=== PATIENT | female | born 2000 | race Caucasian/White ===

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

== ENCOUNTER 2020-10-29 09:50 | Inpatient (IN) ==
[2020-10-29] MEDS ORDERED: cefTRIAXone SODIUM 2,000 MG/70 ML BAG IV STA (11:25)
[2020-10-29 12:03] LABS: Basophils # (auto) 0.02 K/uL (0-0.2); Basophils % (auto) 0.1 %; Eosinophils # (auto) 0.04 K/uL (0-0.5); Eosinophils % (auto) 0.3 %; Hematocrit (blood only) 41.1 % (37-47); Hemoglobin 14.3 g/dL (12.0-16.0); Immature Granulocytes # (auto) 0.03 K/uL (0.00-0.02); Immature Granulocytes % (auto) 0.2 %; Lymphocytes # (auto) 1.91 K/uL (1.2-3.4); Mean Corpuscular Hgb Conc 34.8 g/dL (32-36); Mean Corpuscular Volume 86.3 fL (80-100); Mean Platelet Volume 10.3 fL (7.4-10.4); Monocytes # (auto) 0.97 K/uL (0.11-0.59); Monocytes % (auto) 7.1 %; Neutrophils # (auto) 10.69 K/uL (1.4-6.5); Neutrophils % (auto) 78.3 %; Platelet Count 192 K/uL (130-400); RDW Coefficient of Variation 13.2 % (11.5-14.5); RDW Standard Deviation 42.2 fL (36.4-46.3); Red Blood Count 4.76 M/uL (4.2-5.4); White Blood Count 13.66 K/uL (4.8-10.8)
[2020-10-29 12:19] LABS: Albumin Level 3.9 gm/dl (3.4-5.0); BUN Creatinine Ratio 9.7 (10-20); Calcium 8.9 mg/dl (8.5-10.1); Creatinine Clr Calc Pharmacy 102.8 ml/min; Est GFR (African American) 120.3; Est GFR (Non-African American) 103.8; Potassium 3.6 mmol/L (3.5-5.1)
[2020-10-29 12:21] LABS: Bilirubin,Total 0.7 mg/dl (0.2-1); C Reactive Protein 5.06 mg/dl (0-0.29); Globulin 4.1 gm/dl (2.5-4.0)
[2020-10-29] MEDS ORDERED: OPTIRAY 320 100ml IV ONE (12:51)
--- NOTE | 2020-10-29 13:09 | CT Scan Report ---
CT tib/fib LT w con HISTORY: L leg wound TECHNIQUE: Multiaxial CT images of the left lower leg were performed following the intravenous admini stration of 90 cc of Optiray 320. COMPARISON STUDY: None. FINDINGS: No fracture or dislocation within the left tibia or fibula. No areas of bony destruction to suggest osteomyelitis. No radiopaque foreign bodies. There is skin thickening and subcutaneous edema predominantly along the lateral aspect of the left lower leg. No loculated fluid collections to sugg est an abscess. There is also subcutaneous fat stranding with mild enhancement within the mid to dist al left lower leg most pronounced laterally. Small linear area of hypodensity within the mid aspect o f the left peroneus longus muscle which could represent a mild myositis. This is best seen on image 2 14. Remaining deep fascial compartments of the left lower leg are intact. IMPRESSION: 1. Extensive subcutaneous edema, fat stranding, and skin thickening predominantly along the lateral a spect of the left lower leg. This likely represents a cellulitis. 2. No loculated fluid collections to suggest an abscess. 3. Small linear area of hypodensity within the mid aspect of the left peroneus longus muscle. This ma y represent mild myositis. Remaining deep fascial compartments of the left lower leg are intact. 4. No underlying bony abnormality to suggest an osteomyelitis. ACT 112: Negative or not required by law. Electronically signed by: Julian Clifford M.D. 10/29/2020 1:08 PM
[2020-10-29 13:37] LABS: Influenza A virus by PCR Negative (Neg); Influenza B virus by PCR Negative (Neg); RSV by PCR Negative (Neg); SARS CoV2 RNA(COVID-19) InHosp NEGATIVE (Negative)
--- NOTE | 2020-10-29 13:44 | History & Physical Report ---
Date of Service October 29, 2020 History of Present Illness Primary Care Provider: Chanelle Boles MD Allergies Allergy/AdvReac Type Severity Reaction Status Date / Time No Known Allergies Allergy Verified 10/29/20 10:23 Home Medications Medication Instructions Recorded Confirmed Type etonogestrel 68 mg subdermal 68 mg SUBD CONT ea 05/20/19 10/29/20 History implant cephalexin 500 mg PO Q6H 10 Days #40 cap 10/28/20 10/29/20 Rx sulfamethoxazole-trimethoprim 1 tab PO Q12H 10 Days #20 tab 10/28/20 10/29/20 Rx [Bactrim DS] lactobacillus combination no.4 3,000 mmu cells PO ONCE 10/29/20 10/29/20 History [Probiotic] Past Med/Surg History Medical History (Updated 10/28/20 @ 12:39 by ISADORA Osorio) Anxiety no meds--smokes marijuana daily for this Blood in stool reason for colonoscopy Depression no meds Surgical History No history of previous surgery Family History Grandfather (Maternal) Family history of diabetes mellitus Family hx of colon cancer Other No family history of adverse response to anesthesia Social History Smoking Status: Current every day smoker Tobacco Type: E-cigarettes / Vaping Cigarettes Per Day: vaps every day (equivalant of 1 pack a day); Second Hand Exposure: No; Hx Alcohol Use: Yes Alcohol type: hard liquor Hx Substance Use: Yes (smokes marijuana daily) Last Used Substance: Days (ago) Last Used Substance Other:: smoke yesterday 05/24/2019 Preferred Language: [place]rugu[place] Communication Ability: Effective Public Transit Specialist Required: No Beliefs That Will Affect Care: None Current Living Situation: Significant Other Feels Safe at Home: Yes Assistive Devices: Contacts and Glasses Results & Data Results & Data ([facility]) Vital Signs (Past 12 Hours) Vital Signs Temp Pulse Pulse Resp BP BP Pulse Ox 10/29/20 12:43 74 18 114/85 98 10/29/20 10:01 36.3 C L 76 18 121/81 98 PG Care Time/CCT Total # of Minutes Spent Total Time Spent with Patient: Total time spent is greater than 50% in coordination of care (as documented) at patient's floor/unit and/or counseling patient: Coding
[2020-10-29] MEDS ORDERED: VANCOMYCIN CONSULT ACTIVE PRN (13:45)
[2020-10-29] MEDS: NICOTINE 21 MG/24 HR TDSY TD SCH (14:33)
[2020-10-29] MEDS ORDERED: VANCOMYCIN HCL 1,500 MG in SODIUM CHLORIDE 0.9% 500 ML IV ONE (15:00)
--- NOTE | 2020-10-29 15:03 | History & Physical Report ---
Date of Service October 29, 2020 Assessment & Plan (1) Cellulitis and abscess of left lower extremity: No loculated fluid collections to suggest an abscess - Check CK for myositis read on CT scan - Vancomycin IV- increase coverage if clinically not responding or worsening - qSOFA- 0 SIRS- 1 for WBC - no symptoms of systemic infection - will obtain blood cultures, however low yield - Trend ESR, CRP, - Borders marked with skin marker (2) Functional dyspepsia: No acute needs (3) Smoker: pack a day - nicotine patch- no acute needs History of Present Illness Chief Complaint: skin infection Primary Care Provider: Chanelle Boles MD 20 YOF with past medical history of lyme disease, erythematous rash, blood in stool with negative colonoscopy, Nexplanon implant. Patient comes into the emergency room for re-evaluation of left lower leg cellulitis, that has worsened over the past 24 hours. Patient came to the emergency room yesterday for painful, red, tender area which she originally noticed around Sat when was outside in her garden. As she presented in the EMD yesterday a bedside I&D was performed with drainage of small amount of purulence fluid and a wound culture was obtained. She was discharged on Bactrim and Keflex. Today she came back in the ER as the area she was more erythemic, more painful, and red line tracking up her leg. She denies any fevers or chills, tender or swollen lymphnodes. The dressing from this morning had "yellow but not purulence drainage" She is not on any other medications other than Nexplanon, current smoker and marijuana user, and NOT immunocompromised. Patient will be observed for response to IV antibiotics. Wound Culture from 10/28/20 is staphylococcus species- await for sensitivities- placed on IV vancomycin Allergies Allergy/AdvReac Type Severity Reaction Status Date / Time No Known Allergies Allergy Verified 10/29/20 10:23 Home Medications Medication Instructions Recorded Confirmed Type etonogestrel 68 mg subdermal 68 mg SUBD CONT ea 05/20/19 10/29/20 History implant cephalexin 500 mg PO Q6H 10 Days #40 cap 10/28/20 10/29/20 Rx sulfamethoxazole-trimethoprim 1 tab PO Q12H 10 Days #20 tab 10/28/20 10/29/20 Rx [Bactrim DS] lactobacillus combination no.4 3,000 mmu cells PO ONCE 10/29/20 10/29/20 History [Probiotic] Past Med/Surg History Medical History (Updated 10/30/20 @ 14:59 by Laurie Muñoz MD) Anxiety no meds--smokes marijuana daily for this Blood in stool reason for colonoscopy Depression no meds Surgical History No history of previous surgery Family History Grandfather (Maternal) Family history of diabetes mellitus Family hx of colon cancer Other No family history of adverse response to anesthesia Social History (Updated 10/31/20 @ 00:48 by Da Renteria) Smoking Status: Current every day smoker Tobacco Type: E-cigarettes / Vaping Cigarettes Per Day: vapes every day (equivalant of 1 pack a day); Second Hand Exposure: No; Do You Dip or Chew Tobacco: No; Tobacco Cessation Education Requested by Patient: Yes Hx Alcohol Use: Yes Alcohol type: beer, wine and hard liquor Hx Substance Use: Yes Last Used Substance: Days (ago) Last Used Substance Other:: Days ago Preferred Language: Zambian Communication Ability: Effective Physician General Internal Medicine Required: No Beliefs That Will Affect Care: None Current Living Situation: Significant Other Other Information That Helps Us Care for You: No Feels Safe at Home: Yes Safety Concerns: Feels Safe At This Time Assistive Devices: None Review of Systems Review of Systems: REVIEW OF SYSTEMS: Constitutional: No fever, sweats or chills Eyes: No diplopia, no worsening or blurred vision ENT: normal hearing, no trouble swallowing Respiratory: No cough, sputum, dyspnea at rest or on exertion Cardiovascular: No chest pain, tightness or palpitations Abdomen: No pain, nausea, vomiting, diarrhea or constipation Musculoskeletal: (+) redness and pain to left lower leg No joint pain, Neurologic: No weakness, numbness/tingling, or balance problems Psychiatric: (+)anxiety or (-) depression Skin: (+) as per HPI Physical Exam Physical Exam: PHYSICAL EXAM: General: awake, alert, no apparent distress Head: Normocephalic, atraumatic ENT: PERRL, EOMI, no pharyngeal exudate, mucous membranes moist Neuro: AAO x 3, speech clear and appropriate, strength intact bilaterally 5/5, sensation intact and equal all extremities and dermatomes, no pronator drift Chest: equal rise and fall of the chest, no accessory muscle use, no heaves or thrills, Clear to auscultation, on room air, Cardiac: Regular rate and rhythm, telemetry reviewed, skin warm dry, cap refill <3 seconds, peripheral pulses +2 no JVD, no murmur, no peripheral cardiogenic related edema GI: NABS x 4 quadrants, soft, nontender to palpation, no rebound, guarding or tenderness : Spontaneously voiding, no pain, no CVA tenderness, Extremities: Normal inspection, no peripheral edema or erythema, calfs nontender to palpation Psych: Normal mood and affect Skin: left lower extremity is erythematous and increase in lateral and medial surrounding swelling, hot and tender. The area is tender from 3 inches above ankle to ~3 inches from knee. The surrounding skin is shiny in appearance, and erysipelar rash. The borders are sharp and demarcated. There is a red line that tracks caudally along the lymphatic system and ends just below her groin. The inguinal lympnode on that side is mildly enlarged and not tender to palpation. Right leg is unaffected and there are no other lesions noted. Results & Data Results & Data ([facility]) Vital Signs (Past 12 Hours) Vital Signs Temp Pulse Pulse Resp BP BP Pulse Ox 10/29/20 12:43 74 18 114/85 98 10/29/20 10:01 36.3 C L 76 18 121/81 98 Laboratory Results Abnormal lab results 10/29/20 10/29/20 Range/Units 11:40 11:40 WBC 13.66 H (4.8-10.8) K/uL Neut # (Auto) 10.69 H (1.4-6.5) K/uL Woodson # (Auto) 0.97 H (0.11-0.59) K/uL Immature Gran # (Auto) 0.03 H (0.00-0.02) K/uL Chloride 108 H (98-107) mmol/L BUN/Creatinine Ratio 9.7 L (10-20) Glucose 108 H (70-99) mg/dl AST 13 L (15-37) U/L C-Reactive Protein 5.06 H (0-0.29) mg/dl Globulin 4.1 H (2.5-4.0) gm/dl Diagnostic Findings CT tib/fib LT w con HISTORY: L leg wound TECHNIQUE: Multiaxial CT images of the left lower leg were performed following the intravenous administration of 90 cc of Optiray 320. COMPARISON STUDY: None. FINDINGS: No fracture or dislocation within the left tibia or fibula. No areas of bony destruction to suggest osteomyelitis. No radiopaque foreign bodies. There is skin thickening and subcutaneous edema predominantly along the lateral aspect of the left lower leg. No loculated fluid collections to suggest an abscess. There is also subcutaneous fat stranding with mild enhancement within the mid to distal left lower leg most pronounced laterally. Small linear area of hypodensity within the mid aspect of the left peroneus longus muscle which could represent a mild myositis. This is best seen on image 214. Remaining deep fascial compartments of the left lower leg are intact. IMPRESSION: 1. Extensive subcutaneous edema, fat stranding, and skin thickening predominantly along the lateral aspect of the left lower leg. This likely represents a cellulitis. 2. No loculated fluid collections to suggest an abscess. 3. Small linear area of hypodensity within the mid aspect of the left peroneus longus muscle. This may represent mild myositis. Remaining deep fascial compartments of the left lower leg are intact. 4. No underlying bony abnormality to suggest an osteomyelitis. Medications Administered Home Medications etonogestrel 68 mg subdermal implant 68 mg SUBD CONT ea 05/20/19 [History Confirmed 10/29/20] cephalexin 500 mg PO Q6H 10 Days #40 cap 10/28/20 [Rx Confirmed 10/29/20] sulfamethoxazole-trimethoprim [Bactrim DS] 1 tab PO Q12H 10 Days #20 tab 10/28/20 [Rx Confirmed 10/29/20] lactobacillus combination no.4 [Probiotic] 3,000 mmu cells PO ONCE 10/29/20 [History Confirmed 10/29/20] Active Medications Vancomycin HCl 1,500 mg/ (Sodium Chloride) 530 mls @ 200 mls/hr IV NOW ONE Stop: 10/29/20 17:38 Miscellaneous (Remove Nicoderm Patch) 1 ea N/A DAILY@[id number] PRUDENCE Stop: 11/29/20 08:58 Miscellaneous Information (Vancomycin Consult Active) 1 ea N/A UD PRN PRN Reason: Consult Stop: 11/28/20 13:44 Nicotine (Nicotine 21 Mg/24 Hr Tdsy) 21 mg TD QAM PRUDENCE Stop: 11/28/20 13:29 Last Admin: 10/29/20 14:33 Dose: 21 mg Documented by: ECG Additional Comments: Not performed Code Status & VTE Plan Code Status CODE: FULL VTE: SCD's ambulation VTE Prophylaxis Plan VTE Prophylaxis will be ordered: Yes Supervising Physician Co-Signing Physician Notes Attending Attestation: Pt seen and examined, chart reviewed, care plan d/w ISADORA Mohr. I agree w/ the millan components of his documentation. 20yo female presents for the 2nd time in 2 days for LLE Cellulitis. Had I/D of small pustule on anterior left tolliver yesterday; culture growing staph species. Demarkation lines drawn around area of cellulitis yesterday in ER, and d/c home on oral abx. Despite such the erythema quickly spread beyond the lines, and she actually developed lymphangitic spread up the left anterior thigh towards the left groin. PMH/PSH/allergies/meds/sochx/famhx - reviewed vitals - afebrile, VSS gen - NAD heart - RRR, s1 s2 lungs - CTA b/l abd - soft NT ext - mild gross swelling of most of left tolliver extending from 2-3 inches below the left knee down to the tib-fib region proximal to ankle; worst cellulitic area is about 2/[address] down the tolliver; there is a previous I/D douglas; no drainage; area warm to touch and erythematous; there are demarkation lines around this area of cellulitis; erythema extends superiorly, inferiorly, and laterally from the demarkation lines; there is vertical lymphangitic spread of erythema from t he knee region up the ant thigh towards the thigh musculo - no pain over left knee; full ROM present of L knee A/P: LLE cellulitis 2nd to staph - continue IV vancomycin, then narrow further once species is identified and sensitivities are back. Elevate LLE. Agree with CPK. No clinical evidence on exam of infectious myositis however. Pain meds prn. Da Renteria MD PG Care Time/CCT Total # of Minutes Spent Total Time Spent with Patient: Total time spent is greater than 50% in coordination of care (as documented) at patient's floor/unit and/or counseling patient: Coding Level of Care Code 35383 Initial Inpt Care Lvl 2 Diagnoses Cellulitis and abscess of left lower extremity L03.116; L02.416 Functional dyspepsia K30 Smoker F17.200
--- NOTE | 2020-10-29 15:57 | Pharmacy Report ---
Pharmacy Abx Initial Consult - Date of Service October 29, 2020 - Pharmacy Dosing Scope Date of Consult: 10/29/20 Consultation requested by: Dr. Renteria Pharmacy is consulted to initiate VANCOMYCIN IV dosing therapy, order appropriate labs and adjust drug dose/frequency. - Subjective The patient is a 20 year old F admitted on . - Objective Height: 5 ft 6 in Weight: 64.5 kg Vital Signs (Past 12hrs): Vital Signs Temp Pulse Pulse Resp BP BP Pulse Ox 10/29/20 15:29 83 18 121/73 97 10/29/20 12:43 74 18 114/85 98 10/29/20 10:01 36.3 C L 76 18 121/81 98 Lab Results (24hrs): Laboratory Tests (24 Hours) 10/29/20 10/29/20 10/29/20 11:40 11:40 11:40 WBC 13.66 H Neut # (Auto) 10.69 H ESR 20 Creatinine 0.81 Est Cr Clr Drug Dosing 102.8 C-Reactive Protein 5.06 H Micro Results: 10/29/20 15:00 Aerobic Blood Culture - Pending Blood Anaerobic Blood Culture - Pending 10/29/20 15:05 Aerobic Blood Culture - Pending Blood Anaerobic Blood Culture - Pending - Assessment & Plan Assessment 20 year old F admitted for LLE staph cellulitis, worsening despite Keflex + Bactrim as an outpatient. Plan VANCOMYCIN for treatment of LLE staph cellulitis. Vancomycin IV * Loading dose: 1500mg (~23 mg/kg) * Patient meets criteria for vancomycin AUC dosing nomogram AUC/THIERRY is the preferred PK/PD target for vancomycin Target AUC/THIERRY = 400-600 AUC guided dosing is effective and associated with decreased risk of nephrotoxicity Pharmacy will continue to follow and will adjust dose/frequency as necessary. Thank you.
--- NOTE | 2020-10-29 16:25 | Emergency Department Note ---
History of Present Illness General Chief complaint: Infection Stated complaint: BITE Time Seen by Provider: 10/29/20 08:07 History of Present Illness Maximum Pain Intensity: 10 20-year-old female who presents to the emergency department with a male friend for evaluation of a worsening infection to the left leg. I did speak with this patient earlier in a telehealth visit, with recommendations to return to the emergency department. The patient reports that her infection started earlier in the week. She was working in her garden, and suspects that she was bitten by some type of insect. She was seen in our emergency department yesterday with a pustule and notable erythema on the leg. Attempted I&D procedure was performed without any significant purulent drainage. The patient was provided a prescription for Keflex and Bactrim DS antibiotics. The patient reports that she woke up several times last night in a sweat. She also reports progressively worsening swelling, redness and pain of the leg. She noticed a red streak going up her leg into the left groin this morning as well, and elected to utilize telehealth consultation initially, which was provided by me. The male friend reports that her temperatures have been in the high 90s, but has not gone above 100 F. The patient denies any prior history of skin infections or known antibiotic resistant infections. The patient reports that she does feel chilled and rundown. Home Medications Medication Instructions Recorded Confirmed Type etonogestrel 68 mg subdermal 68 mg SUBD CONT ea 05/20/19 10/29/20 History implant cephalexin 500 mg PO Q6H 10 Days #40 cap 10/28/20 10/29/20 Rx sulfamethoxazole-trimethoprim 1 tab PO Q12H 10 Days #20 tab 10/28/20 10/29/20 Rx [Bactrim DS] lactobacillus combination no.4 3,000 mmu cells PO ONCE 10/29/20 10/29/20 History [Probiotic] Allergies Allergy/AdvReac Type Severity Reaction Status Date / Time No Known Allergies Allergy Verified 10/29/20 10:23 Past Med/Surg History Medical History (Updated 10/29/20 @ 16:25 by Kody Mccartney) Anxiety no meds--smokes marijuana daily for this Blood in stool reason for colonoscopy Depression no meds Surgical History No history of previous surgery Family History Grandfather (Maternal) Family history of diabetes mellitus Family hx of colon cancer Other No family history of adverse response to anesthesia Social History Smoking Status: Current every day smoker Tobacco Type: E-cigarettes / Vaping Cigarettes Per Day: vaps every day (equivalant of 1 pack a day); Second Hand Exposure: No; Hx Alcohol Use: Yes Alcohol type: hard liquor Hx Substance Use: Yes (smokes marijuana daily) Last Used Substance: Days (ago) Last Used Substance Other:: smoke yesterday 05/24/2019 Preferred Language: Khmer Communication Ability: Effective 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 Beliefs That Will Affect Care: None Current Living Situation: Significant Other Feels Safe at Home: Yes Assistive Devices: Contacts and Glasses Review of Systems 10 system review was performed and was negative except for pertinent positives and negatives as indicated in history of present illness Physical Exam Vital Signs Vital Signs - 24 hr 10/29/20 10:01 10/29/20 12:43 10/29/20 15:29 Temperature 36.3 C L Temperature Source Skin Pulse Rate 76 Pulse Rate [Right Finger] 74 83 Pulse Rhythm [Right Finger] Regular Regular Pulse Strength [Right Finger] Normal Normal Respiratory Rate 18 18 18 Respiratory Effort / Characteristics Non-Labored Spontaneous Non-Labored Spontaneous Non-Labored Spontaneous Respiratory Depth Normal Normal Normal Respiratory Pattern Regular Regular Blood Pressure 121/81 Blood Pressure [Left Arm] 114/85 121/73 Blood Pressure Mean 94 Blood Pressure Mean [Left Arm] 94 89 Blood Pressure Position Lying Blood Pressure Position [Left Arm] Sitting Sitting Pulse Oximetry 98 98 97 Oxygen Delivery Method Room Air Room Air Room Air Sepsis Recent Fever Within 48 Hours No Sepsis New/Unexplained Change in Mental Status N/A Sepsis Action Taken by Nursing No Action Required CONSTITUTIONAL: Healthy and well nourished. Patient does not appear in any acute distress. HEENT: Normocephalic, atraumatic. No scleral icterus or conjunctival injection. NECK: Full active range of motion without discomfort. LYMPHATICS: No cervical chain adenopathy. RESPIRATORY: Clear to auscultation bilaterally with no wheezing, crackles, rhonchi or stridor. CARDIOVASCULAR: Regular rate and rhythm with no murmurs, rubs or gallops. MUSCULOSKELETAL: Examination of the left leg shows an open wound on the left anterior leg, likely from the previous I&D procedure. No purulent drainage is noted. The patient has notable induration of the entire anterior leg region. Also has a lymphangitic streak running from the center of the wound, along the anterior medial knee and anterior medial thigh region to the groin. The area of infection is exquisitely tender to palpation. She has no tenderness to palpation through the calf, ankle or foot region. Pedal pulses are intact. No subcutaneous crepitance is noted about the wound opening. INTEGUMENTARY: No rash or other significant dermatologic conditions noted. HEMATOLOGIC: No ecchymosis or petechiae. PSYCHIATRIC: Positive affect. NEUROLOGIC: Left lower extremity is sensory intact. Course Course Patient history and physical exam were performed. Nurses notes were reviewed. Vital signs were reviewed. The patient is currently afebrile and not hypoten sive or tachycardic. I also reviewed documentation from the patient's last visit, including the patient's I&D procedure. Wound cultures are preliminary positive for staph. Final cultures have yet to be completed. After physical exam was performed, I did discuss the case with Dr. Mike, ED attending physician, who also evaluated the patient. We did engage in conversation with our ED pharmacist regarding treatment options. Because the patient's condition has quickly and progressively worsen, she does not meet treatment criteria for dalbavancin IV antibiotics and outpatient management. I did recommend performing imaging and lab work in anticipation of admission, and the patient was in agreement. IV access was established, and labs were drawn. The patient refused any analgesics on initial exam. The patient was ordered Rocephin 2 g IV infusion. Review of labs does show a mild leukocytosis with left shift and bandemia. CMP is otherwise unremarkable. Rate is normal, however CRP is elevated. COVID-19 test was also performed in anticipation for admission, and was negative. CT with IV contrast of the leg shows evidence for cellulitis, and without subcutaneous air that would be consistent with necrotizing fasciitis. Findings were discussed with Dr. Mike, as well as with the patient, with the patient agreeing to admission. Patient did request a nicotine patch as she does vape the equivalent of 1 pack of cigarettes daily. The case was further discussed with Dr. Renteria, [facility], who agrees to evaluate the patient. Please see his dictation for further treatment and final disposition. Administered Medications Vancomycin HCl 1,500 mg/ (Sodium Chloride) 530 mls @ 200 mls/hr IV NOW ONE Stop: 10/29/20 17:38 Last Admin: 10/29/20 15:27 Dose: 200 mls/hr Documented by: [id number] Nicotine (Nicotine 21 Mg/24 Hr Tdsy) 21 mg TD QAM PRUDENCE Stop: 11/28/20 13:29 Last Admin: 10/29/20 14:33 Dose: 21 mg Documented by: [id number] Discontinued Medications Ceftriaxone Sodium (Rocephin) 2,000 mg in 70 mls @ 140 mls/hr IV NOW STA Stop: 10/29/20 11:54 Last Infusion: 10/29/20 12:11 Dose: 0 mls/hr Documented by: [id number] Admin: 10/29/20 11:41 Dose: 140 mls/hr Documented by: [id number] Ioversol (Ioversol 100ml) 90 ml IV ONCE ONE Stop: 10/29/20 12:52 Last Admin: 10/29/20 12:51 Dose: 90 ml Documented by: [id number] Medical Decision Making Medical Records Attestation: I reviewed the patient's medical records. Home Medications Current Medication List: was personally reviewed by me Laboratory Data Attestation: I reviewed the patient's lab results. Result diagrams: 10/29/20 11:40 10/29/20 11:40 Lab Results 10/29/20 10/29/20 10/29/20 Range/Units 11:40 11:40 11:40 WBC 13.66 H (4.8-10.8) K/uL RBC 4.76 (4.2-5.4) M/uL Hgb 14.3 (12.0-16.0) g/dL Hct 41.1 (37-47) % MCV 86.3 (80-100) fL MCH 30.0 (25-34) pg MCHC 34.8 (32-36) g/dL RDW Std Deviation 42.2 (36.4-46.3) fL RDW Coeff of Jordyn 13.2 (11.5-14.5) % Plt Count 192 (130-400) K/uL MPV 10.3 (7.4-10.4) fL Immature Gran % (Auto) 0.2 % Neut % (Auto) 78.3 % Lymph % (Auto) 14.0 % [place] % (Auto) 7.1 % Eos % (Auto) 0.3 % Baso % (Auto) 0.1 % Neut # (Auto) 10.69 H (1.4-6.5) K/uL Lymph # (Auto) 1.91 (1.2-3.4) K/uL [place] # (Auto) 0.97 H (0.11-0.59) K/uL Eos # (Auto) 0.04 (0-0.5) K/uL Baso # (Auto) 0.02 (0-0.2) K/uL Immature Gran # (Auto) 0.03 H (0.00-0.02) K/uL ESR 20 (0-21) mm/hr Sodium 138 (136-145) mmol/L Potassium 3.6 (3.5-5.1) mmol/L Chloride 108 H (98-107) mmol/L Carbon Dioxide 27 (21-32) mmol/L Anion Gap 3.0 (3-11) BUN 8 (7-18) mg/dl Creatinine 0.81 (0.6-1.2) mg/dl Est Cr Clr Drug Dosing 102.8 ml/min Est GFR ( Amer) 120.3 Est GFR (Non-Af Amer) 103.8 BUN/Creatinine Ratio 9.7 L (10-20) Glucose 108 H (70-99) mg/dl Calcium 8.9 (8.5-10.1) mg/dl Total Bilirubin 0.7 (0.2-1) mg/dl AST 13 L (15-37) U/L ALT 15 (12-78) U/L Alkaline Phosphatase 64 (45-117) U/L Total Creatine Kinase (26-192) U/L C-Reactive Protein 5.06 H (0-0.29) mg/dl Total Protein 8.0 (6.4-8.2) gm/dl Albumin 3.9 (3.4-5.0) gm/dl Globulin 4.1 H (2.5-4.0) gm/dl Albumin/Globulin Ratio 1.0 (0.9-2) COVID-19 Eval Order SARS-CoV-2 (PCR) (Negative) Influenza Type A (PCR) (Neg) Influenza Type B (PCR) (Neg) RSV (RT-PCR) (Neg) 10/29/20 10/29/20 10/29/20 Range/Units 11:40 12:45 12:45 WBC (4.8-10.8) K/uL RBC (4.2-5.4) M/uL Hgb (12.0-16.0) g/dL Hct (37-47) % MCV (80-100) fL MCH (25-34) pg MCHC (32-36) g/dL RDW Std Deviation (36.4-46.3) fL RDW Coeff of Jordyn (11.5-14.5) % Plt Count (130-400) K/uL MPV (7.4-10.4) fL Immature Gran % (Auto) % Neut % (Auto) % Lymph % (Auto) % [place] % (Auto) % Eos % (Auto) % Baso % (Auto) % Neut # (Auto) (1.4-6.5) K/uL Lymph # (Auto) (1.2-3.4) K/uL [place] # (Auto) (0.11-0.59) K/uL Eos # (Auto) (0-0.5) K/uL Baso # (Auto) (0-0.2) K/uL Immature Gran # (Auto) (0.00-0.02) K/uL ESR (0-21) mm/hr Sodium (136-145) mmol/L Potassium (3.5-5.1) mmol/L Chloride (98-107) mmol/L Carbon Dioxide (21-32) mmol/L Anion Gap (3-11) BUN (7-18) mg/dl Creatinine (0.6-1.2) mg/dl Est Cr Clr Drug Dosing ml/min Est GFR ( Amer) Est GFR (Non-Af Amer) BUN/Creatinine Ratio (10-20) Glucose (70-99) mg/dl Calcium (8.5-10.1) mg/dl Total Bilirubin (0.2-1) mg/dl AST (15-37) U/L ALT (12-78) U/L Alkaline Phosphatase (45-117) U/L Total Creatine Kinase 76 (26-192) U/L C-Reactive Protein (0-0.29) mg/dl Total Protein (6.4-8.2) gm/dl Albumin (3.4-5.0) gm/dl Globulin (2.5-4.0) gm/dl Albumin/Globulin Ratio (0.9-2) COVID-19 Eval Order CovFluRsv at [facility] SARS-CoV-2 (PCR) NEGATIVE (Negative) Influenza Type A (PCR) Negative (Neg) Influenza Type B (PCR) Negative (Neg) RSV (RT-PCR) Negative (Neg) Imaging Data Attestation: I personally reviewed and interpreted this imaging study as follows: My Impression: CT with IV contrast of the left leg shows evidence for cellulitis, and without underlying collection to suggest necrotizing fasciitis. Radiologist report was also reviewed. Radiologist's Impression: Lower Extremity CT 10/29/20 11:27 CT tib/fib LT w con HISTORY: L leg wound TECHNIQUE: Multiaxial CT images of the left lower leg were performed following the intravenous administration of 90 cc of Optiray 320. COMPARISON STUDY: None. FINDINGS: No fracture or dislocation within the left tibia or fibula. No areas of bony destruction to suggest osteomyelitis. No radiopaque foreign bodies. There is skin thickening and subcutaneous edema predominantly along the lateral aspect of the left lower leg. No loculated fluid collections to suggest an abscess. There is also subcutaneous fat stranding with mild enhancement within the mid to distal left lower leg most pronounced laterally. Small linear area of hypodensity within the mid aspect of the left peroneus longus muscle which could represent a mild myositis. This is best seen on image 214. Remaining deep fascial compartments of the left lower leg are intact. IMPRESSION: 1. Extensive subcutaneous edema, fat stranding, and skin thickening predominantly along the lateral aspect of the left lower leg. This likely represents a cellulitis. 2. No loculated fluid collections to suggest an abscess. 3. Small linear area of hypodensity within the mid aspect of the left peroneus longus muscle. This may represent mild myositis. Remaining deep fascial compartments of the left lower leg are intact. 4. No underlying bony abnormality to suggest an osteomyelitis. ACT 112: Negative or not required by law. Electronically signed by: Julian Clifford M.D. 10/29/2020 1:08 PM Blood Pressure Blood Pressure Findings: Normal blood pressure MDM Narrative Patient does not have a fever, significant white count or physical exam findings to suggest sepsis. Because of the rapidly advancing infection, I do feel that the patient warrants inpatient antibiotic management. I do not suspect other underlying etiologies such as DVT. Antibiotic resistant infection was also considered, but felt less likely. The patient has failed outpatient management with oral Keflex and Bactrim DS antibiotics, however she has been on the antibiotics for less than 24 hours of her last ED evaluation. Impression & Plan Cellulitis of left leg, Acute lymphangitis of left lower extremity Discharge Plan Visit Data Chief Complaint: Infection Stated Complaint: BITE ED Provider: Richardson Mike ED Midlevel Provider: Kody Mccartney Discharge Problem: Cellulitis of left leg, Acute lymphangitis of left lower extremity Forms Stand Alone Forms: My [facility] [employer] Prescriptions Prescriptions: No Action Nexplanon 68 mg implant 68 mg SUBD CONT RF: 0 sulfamethoxazole-trimethoprim [Bactrim DS] 800-160 mg tablet 1 tab PO Q12H 10 Days Qty: 20 RF: 0 cephalexin 500 mg capsule 500 mg PO Q6H 10 Days Qty: 40 RF: 0 Probiotic 3 billion cell Capsule 3,000 mmu cells PO ONCE RF: 0
--- NOTE | 2020-10-29 16:28 | ED Telehealth Note ---
Telehealth Telehealth Telehealth Options: 2-way audio and video For the duration of the visit, provider was performing the assessment from: The same facility as the patient After establishing a telemedicine visit, patient was: Patient was verified with two unique identifiers Total Time Spent (minutes): 6.5 Impression & Plan Cellulitis of left leg, Acute lymphangitis of left lower extremity Note/Exam/Outcome Date of Service October 29, 2020 20-year-old female who utilizes telehealth services today for further evaluation of a left leg infection. The patient reports that she was in the emergency department yesterday for the infection. She reports having an I&D procedure performed, and was started on both Keflex and Bactrim DS antibiotics. She reports that the infection has progressively worsened with swelling, pain and a red streak extending from the wound to her left groin. The patient reports that she also woke up several times last night in a sweat. She reports having a low- grade fever as well. Given the patient's worsening infection, I did recommend that she return to the emergency department for further reevaluation, possible IV antibiotics and consideration for admission as warranted. The patient was in agreement, and will return for further evaluation. It is noted in the following sections of laboratory and imaging studies that were completed at the time of ED presentation, and not through this telehealth visit. ED Telehealth Outcome Referred to ED for in person visit Past Med/Surg History Medical History (Updated 10/29/20 @ 16:25 by Kody Mccartney) Anxiety no meds--smokes marijuana daily for this Blood in stool reason for colonoscopy Depression no meds Surgical History No history of previous surgery Family History Grandfather (Maternal) Family history of diabetes mellitus Family hx of colon cancer Other No family history of adverse response to anesthesia Social History Smoking Status: Current every day smoker Tobacco Type: E-cigarettes / Vaping Cigarettes Per Day: vaps every day (equivalant of 1 pack a day); Second Hand Exposure: No; Hx Alcohol Use: Yes Alcohol type: hard liquor Hx Substance Use: Yes (smokes marijuana daily) Last Used Substance: Days (ago) Last Used Substance Other:: smoke yesterday 05/24/2019 Preferred Language: Azerbaijani Communication Ability: Effective 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 Beliefs That Will Affect Care: None Current Living Situation: Significant Other Feels Safe at Home: Yes Assistive Devices: Contacts and Glasses Allergies Allergies Allergy/AdvReac Type Severity Reaction Status Date / Time No Known Allergies Allergy Verified 10/29/20 10:23 Home Meds Home Medications Medication Instructions Recorded Confirmed etonogestrel 68 mg subdermal 68 mg SUBD CONT ea 05/20/19 10/29/20 implant lactobacillus combination no.4 3,000 mmu cells PO ONCE 10/29/20 10/29/20 [Probiotic] Previous Rx's Medication Instructions Recorded cephalexin 500 mg PO Q6H 10 Days #40 cap 10/28/20 sulfamethoxazole-trimethoprim 1 tab PO Q12H 10 Days #20 tab 10/28/20 [Bactrim DS] Results & Data (ED) Vital Signs Vital Signs - 24 hr 10/29/20 10:01 10/29/20 12:43 10/29/20 15:29 Temperature 36.3 C L Temperature Source Skin Pulse Rate 76 Pulse Rate [Right Finger] 74 83 Pulse Rhythm [Right Finger] Regular Regular Pulse Strength [Right Finger] Normal Normal Respiratory Rate 18 18 18 Respiratory Effort / Characteristics Non-Labored Spontaneous Non-Labored Spontaneous Non-Labored Spontaneous Respiratory Depth Normal Normal Normal Respiratory Pattern Regular Regular Blood Pressure 121/81 Blood Pressure [Left Arm] 114/85 121/73 Blood Pressure Mean 94 Blood Pressure Mean [Left Arm] 94 89 Blood Pressure Position Lying Blood Pressure Position [Left Arm] Sitting Sitting Pulse Oximetry 98 98 97 Oxygen Delivery Method Room Air Room Air Room Air Sepsis Recent Fever Within 48 Hours No Sepsis New/Unexplained Change in Mental Status N/A Sepsis Action Taken by Nursing No Action Required Laboratory Data Result diagrams: 10/29/20 11:40 10/29/20 11:40 Lab Results 10/29/20 10/29/20 10/29/20 Range/Units 11:40 11:40 11:40 WBC 13.66 H (4.8-10.8) K/uL RBC 4.76 (4.2-5.4) M/uL Hgb 14.3 (12.0-16.0) g/dL Hct 41.1 (37-47) % MCV 86.3 (80-100) fL MCH 30.0 (25-34) pg MCHC 34.8 (32-36) g/dL RDW Std Deviation 42.2 (36.4-46.3) fL RDW Coeff of Jordyn 13.2 (11.5-14.5) % Plt Count 192 (130-400) K/uL MPV 10.3 (7.4-10.4) fL Immature Gran % (Auto) 0.2 % Neut % (Auto) 78.3 % Lymph % (Auto) 14.0 % [place] % (Auto) 7.1 % Eos % (Auto) 0.3 % Baso % (Auto) 0.1 % Neut # (Auto) 10.69 H (1.4-6.5) K/uL Lymph # (Auto) 1.91 (1.2-3.4) K/uL Benson # (Auto) 0.97 H (0.11-0.59) K/uL Eos # (Auto) 0.04 (0-0.5) K/uL Baso # (Auto) 0.02 (0-0.2) K/uL Immature Gran # (Auto) 0.03 H (0.00-0.02) K/uL ESR 20 (0-21) mm/hr Sodium 138 (136-145) mmol/L Potassium 3.6 (3.5-5.1) mmol/L Chloride 108 H (98-107) mmol/L Carbon Dioxide 27 (21-32) mmol/L Anion Gap 3.0 (3-11) BUN 8 (7-18) mg/dl Creatinine 0.81 (0.6-1.2) mg/dl Est Cr Clr Drug Dosing 102.8 ml/min Est GFR ( Amer) 120.3 Est GFR (Non-Af Amer) 103.8 BUN/Creatinine Ratio 9.7 L (10-20) Glucose 108 H (70-99) mg/dl Calcium 8.9 (8.5-10.1) mg/dl Total Bilirubin 0.7 (0.2-1) mg/dl AST 13 L (15-37) U/L ALT 15 (12-78) U/L Alkaline Phosphatase 64 (45-117) U/L Total Creatine Kinase (26-192) U/L C-Reactive Protein 5.06 H (0-0.29) mg/dl Total Protein 8.0 (6.4-8.2) gm/dl Albumin 3.9 (3.4-5.0) gm/dl Globulin 4.1 H (2.5-4.0) gm/dl Albumin/Globulin Ratio 1.0 (0.9-2) COVID-19 Eval Order SARS-CoV-2 (PCR) (Negative) Influenza Type A (PCR) (Neg) Influenza Type B (PCR) (Neg) RSV (RT-PCR) (Neg) 10/29/20 10/29/20 10/29/20 Range/Units 11:40 12:45 12:45 WBC (4.8-10.8) K/uL RBC (4.2-5.4) M/uL Hgb (12.0-16.0) g/dL Hct (37-47) % MCV (80-100) fL MCH (25-34) pg MCHC (32-36) g/dL RDW Std Deviation (36.4-46.3) fL RDW Coeff of Jordyn (11.5-14.5) % Plt Count (130-400) K/uL MPV (7.4-10.4) fL Immature Gran % (Auto) % Neut % (Auto) % Lymph % (Auto) % [place] % (Auto) % Eos % (Auto) % Baso % (Auto) % Neut # (Auto) (1.4-6.5) K/uL Lymph # (Auto) (1.2-3.4) K/uL Benson # (Auto) (0.11-0.59) K/uL Eos # (Auto) (0-0.5) K/uL Baso # (Auto) (0-0.2) K/uL Immature Gran # (Auto) (0.00-0.02) K/uL ESR (0-21) mm/hr Sodium (136-145) mmol/L Potassium (3.5-5.1) mmol/L Chloride (98-107) mmol/L Carbon Dioxide (21-32) mmol/L Anion Gap (3-11) BUN (7-18) mg/dl Creatinine (0.6-1.2) mg/dl Est Cr Clr Drug Dosing ml/min Est GFR ( Amer) Est GFR (Non-Af Amer) BUN/Creatinine Ratio (10-20) Glucose (70-99) mg/dl Calcium (8.5-10.1) mg/dl Total Bilirubin (0.2-1) mg/dl AST (15-37) U/L ALT (12-78) U/L Alkaline Phosphatase (45-117) U/L Total Creatine Kinase 76 (26-192) U/L C-Reactive Protein (0-0.29) mg/dl Total Protein (6.4-8.2) gm/dl Albumin (3.4-5.0) gm/dl Globulin (2.5-4.0) gm/dl Albumin/Globulin Ratio (0.9-2) COVID-19 Eval Order CovFluRsv at [facility] SARS-CoV-2 (PCR) NEGATIVE (Negative) Influenza Type A (PCR) Negative (Neg) Influenza Type B (PCR) Negative (Neg) RSV (RT-PCR) Negative (Neg) Discharge Plan Visit Data Chief Complaint: Infection Stated Complaint: BITE ED Provider: Richardson Mike ED Midlevel Provider: Kody Mccartney Discharge Problem: Cellulitis of left leg, Acute lymphangitis of left lower extremity Forms Stand Alone Forms: My [facility] [employer] Prescriptions Prescriptions: No Action Nexplanon 68 mg implant 68 mg SUBD CONT RF: 0 sulfamethoxazole-trimethoprim [Bactrim DS] 800-160 mg tablet 1 tab PO Q12H 10 Days Qty: 20 RF: 0 cephalexin 500 mg capsule 500 mg PO Q6H 10 Days Qty: 40 RF: 0 Probiotic 3 billion cell Capsule 3,000 mmu cells PO ONCE RF: 0
[2020-10-29] MEDS: ACETAMINOPHEN 325 MG TAB PO PRN (19:41)
[2020-10-29] MEDS ORDERED: PNEUMOCOCCAL Polysaccharide Vaccine 25mcg/0.5mL vial/Syr IM ONE (21:30)
[2020-10-29 22:18] LABS: Pregnancy Test, Urine Negative (Negative)
[2020-10-29 22:24] LABS: Appearance Urine Clear (Clear); Bilirubin Urine Negative (Negative); Blood Urine Negative (Negative); Color Urine Yellow; Glucose Urine UA Negative (Negative); Ketones Urine Negative (Negative); Leukocyte Esterase Urine Negative (Negative); Nitrite Urine Negative (Negative); Protein Urine Negative (Negative); Specific Gravity Urine 1.009 (1.000-1.030); Urobilinogen Urine Negative (Negative)
[2020-10-30] MEDS ORDERED: VANCOMYCIN HCL 1,000 MG in SODIUM CHLORIDE 0.9% 250 ML IV SCH
[2020-10-30] MEDS ORDERED: VANCOMYCIN HCL 1,000 MG/270 ML BAG IV SCH
[2020-10-30] MEDS: VANCOMYCIN HCL 1,000 MG in SODIUM CHLORIDE 0.9% 250 ML IV SCH ×2 (00:19→08:02)
[2020-10-30] MEDS ORDERED: Nursing to Pharmacy Communication SCH (09:00)
[2020-10-30] MEDS: ACETAMINOPHEN 325 MG TAB PO PRN ×3 (09:06→22:03)
[2020-10-30] MEDS: [UNRECOGNIZED DRUG - OTHER] PO SCH (09:17)
[2020-10-30] MEDS: PROBIOTICS PO SCH (09:17)
[2020-10-30] MEDS: NICOTINE 21 MG/24 HR TDSY TD SCH (09:18)
[2020-10-30] MEDS ORDERED: cefTRIAXone SODIUM 1,000 MG in DEXTROSE 5% 50 ML IV SCH (11:00)
[2020-10-30 11:02] LABS: Basophils # (auto) 0.01 K/uL (0-0.2); Basophils % (auto) 0.1 %; Eosinophils # (auto) 0.06 K/uL (0-0.5); Eosinophils % (auto) 0.6 %; Hematocrit (blood only) 38.8 % (37-47); Hemoglobin 13.2 g/dL (12.0-16.0); Immature Granulocytes # (auto) 0.01 K/uL (0.00-0.02); Immature Granulocytes % (auto) 0.1 %; Lymphocytes # (auto) 1.79 K/uL (1.2-3.4); Lymphocytes % (auto) 18.9 %; Mean Corpuscular Volume 88.2 fL (80-100); Mean Platelet Volume 10.4 fL (7.4-10.4); Monocytes # (auto) 0.85 K/uL (0.11-0.59); Neutrophils # (auto) 6.75 K/uL (1.4-6.5); Neutrophils % (auto) 71.3 %; Platelet Count 181 K/uL (130-400); RDW Coefficient of Variation 13.2 % (11.5-14.5); White Blood Count 9.47 K/uL (4.8-10.8)
[2020-10-30 11:25] LABS: BUN Creatinine Ratio 5.4 (10-20); Calcium 8.3 mg/dl (8.5-10.1); Creatinine Clr Calc Pharmacy 117.3 ml/min; Est GFR (African American) 141.1; Est GFR (Non-African American) 121.8; Potassium 3.7 mmol/L (3.5-5.1)
[2020-10-30] MEDS: ceFAZolin 2000MG 2,000 MG/15 ML SYR IV SCH ×2 (12:36→20:02)
[2020-10-30] MEDS: ONDANSETRON INJ 2 MG/ML 2 ML VIAL IV PRN ×2 (12:40→20:10)
--- NOTE | 2020-10-30 15:03 | Hospitalist Progress Note ---
Date of Service October 30, 2020 Assessment & Plan (1) Cellulitis and abscess of left lower extremity: With left leg cellulitis and lymphangitis with small abscess now s/p I&D, failed outpt antibiotics Afebrile here, leukocytosis now improved, no sepsis CT leg no loculated fluid collections to suggest an abscess CK normal Wound cx with MSSA, BCXs NGTD Leg is improving but needs one more day of IV abx ESR 19, CRP 4.2 but improved from previous--> trend -elevated when in bed -dc Vanco and start IV ANcef 2000mg IV q8h while in hospital -can convert to po doxycycline x 7-10 day course as outpt after discharge tylenol prn pain (2) Functional dyspepsia: No acute needs Zofran as needed (3) Smoker: pack a day - nicotine patch needs smoking cessation counseling (4) DVT prophylaxis: add Lovenox continue SCD to RLE Dispo-continued stay, possible discharge tomorrow Admission and Anticipated Discharge Date Admission Date: October 29, 2020 Subjective Pt feeling better, is concerned that the redness is now down behind her calf instead of just on front of her leg. However, the red streak of the leg is now gone.She had a little nausea with the antibiotic injection that was relieved with Zofran. Her stools are a bit soft and she brought in probiotics from home to take. Denies CP or SOB. Afebrile. Review of Systems Review of Systems: All systems reviewed & are unremarkable except as noted in HPI & below Physical Exam Constitutional: WD/WN, vitals as above Eyes: + anicteric sclerae Neck: trachea midline, no thyromegaly Respiratory: normal respiratory effort, lungs clear to auscultation Cardiovascular: Rate/Rhythm: regular rate and regular rhythm Heart Sounds: no murmur Extremities: + edema (left distal leg and ankle with mild nonpitting edema) Chest (Breasts): Chest: normal inspection of chest Gastrointestinal (Abdomen): normal bowel sounds, soft, nontender, no hepatosplenomegaly Musculoskeletal: Extremities: no cyanosis and no clubbing Skin: erythema anterior left leg and has widened outside of marked line to lateral leg and medial leg but no streaking erythema up thigh and erythema has receded from proximal line drawn; small incisional scab in middle 2+ DP pulse on left Neurologic: moves all extremities and awake; no focal motor deficits Psychiatric: A+Ox3, euthymic affect Results & Data Results & Data ([facility]) Vital Signs (Past 12 Hours) Vital Signs Temp Pulse Resp BP Pulse Ox 10/30/20 08:00 37.0 C 79 16 107/65 97 Laboratory Results 10/30/20 10/30/20 10/30/20 Range/Units 06:29 06:29 06:29 WBC 9.47 (4.8-10.8) K/uL RBC 4.40 (4.2-5.4) M/uL Hgb 13.2 (12.0-16.0) g/dL Hct 38.8 (37-47) % MCV 88.2 (80-100) fL MCH 30.0 (25-34) pg MCHC 34.0 (32-36) g/dL RDW Std Deviation 43.0 (36.4-46.3) fL RDW Coeff of Jordyn 13.2 (11.5-14.5) % Plt Count 181 (130-400) K/uL MPV 10.4 (7.4-10.4) fL Immature Gran % (Auto) 0.1 % Neut % (Auto) 71.3 % Lymph % (Auto) 18.9 % [place] % (Auto) 9.0 % Eos % (Auto) 0.6 % Baso % (Auto) 0.1 % Neut # (Auto) 6.75 H (1.4-6.5) K/uL Lymph # (Auto) 1.79 (1.2-3.4) K/uL [place] # (Auto) 0.85 H (0.11-0.59) K/uL Eos # (Auto) 0.06 (0-0.5) K/uL Baso # (Auto) 0.01 (0-0.2) K/uL Immature Gran # (Auto) 0.01 (0.00-0.02) K/uL ESR (0-21) mm/hr Sodium 140 (136-145) mmol/L Potassium 3.7 (3.5-5.1) mmol/L Chloride 106 (98-107) mmol/L Carbon Dioxide 27 (21-32) mmol/L Anion Gap 7.0 (3-11) BUN 4 L (7-18) mg/dl Creatinine 0.71 (0.6-1.2) mg/dl Est Cr Clr Drug Dosing 117.3 ml/min Est GFR ( Amer) 141.1 Est GFR (Non-Af Amer) 121.8 BUN/Creatinine Ratio 5.4 L (10-20) Glucose 82 (70-99) mg/dl Calcium 8.3 L (8.5-10.1) mg/dl Total Creatine Kinase (26-192) U/L C-Reactive Protein 4.28 H (0-0.29) mg/dl Urine Color Urine Appearance (Clear) Urine pH (4.5-7.5) Ur Specific [place] (1.000-1.030) Urine Protein (Negative) Urine Glucose (UA) (Negative) Urine Ketones (Negative) Urine Blood (Negative) Urine Nitrite (Negative) Urine Bilirubin (Negative) Urine Urobilinogen (Negative) Ur Leukocyte Esterase (Negative) Urine Test (Negative) 10/30/20 10/29/20 10/29/20 Range/Units 06:29 21:59 21:59 WBC (4.8-10.8) K/uL RBC (4.2-5.4) M/uL Hgb (12.0-16.0) g/dL Hct (37-47) % MCV (80-100) fL MCH (25-34) pg MCHC (32-36) g/dL RDW Std Deviation (36.4-46.3) fL RDW Coeff of Jordyn (11.5-14.5) % Plt Count (130-400) K/uL MPV (7.4-10.4) fL Immature Gran % (Auto) % Neut % (Auto) % Lymph % (Auto) % [place] % (Auto) % Eos % (Auto) % Baso % (Auto) % Neut # (Auto) (1.4-6.5) K/uL Lymph # (Auto) (1.2-3.4) K/uL [place] # (Auto) (0.11-0.59) K/uL Eos # (Auto) (0-0.5) K/uL Baso # (Auto) (0-0.2) K/uL Immature Gran # (Auto) (0.00-0.02) K/uL ESR 19 (0-21) mm/hr Sodium (136-145) mmol/L Potassium (3.5-5.1) mmol/L Chloride (98-107) mmol/L Carbon Dioxide (21-32) mmol/L Anion Gap (3-11) BUN (7-18) mg/dl Creatinine (0.6-1.2) mg/dl Est Cr Clr Drug Dosing ml/min Est GFR ( Amer) Est GFR (Non-Af Amer) BUN/Creatinine Ratio (10-20) Glucose (70-99) mg/dl Calcium (8.5-10.1) mg/dl Total Creatine Kinase (26-192) U/L C-Reactive Protein (0-0.29) mg/dl Urine Color Yellow Urine Appearance Clear (Clear) Urine pH 8.0 H (4.5-7.5) Ur Specific [place] 1.009 (1.000-1.030) Urine Protein Negative (Negative) Urine Glucose (UA) Negative (Negative) Urine Ketones Negative (Negative) Urine Blood Negative (Negative) Urine Nitrite Negative (Negative) Urine Bilirubin Negative (Negative) Urine Urobilinogen Negative (Negative) Ur Leukocyte Esterase Negative (Negative) Urine Test Negative (Negative) 10/29/20 Range/Units 11:40 WBC (4.8-10.8) K/uL RBC (4.2-5.4) M/uL Hgb (12.0-16.0) g/dL Hct (37-47) % MCV (80-100) fL MCH (25-34) pg MCHC (32-36) g/dL RDW Std Deviation (36.4-46.3) fL RDW Coeff of Jordyn (11.5-14.5) % Plt Count (130-400) K/uL MPV (7.4-10.4) fL Immature Gran % (Auto) % Neut % (Auto) % Lymph % (Auto) % [place] % (Auto) % Eos % (Auto) % Baso % (Auto) % Neut # (Auto) (1.4-6.5) K/uL Lymph # (Auto) (1.2-3.4) K/uL [place] # (Auto) (0.11-0.59) K/uL Eos # (Auto) (0-0.5) K/uL Baso # (Auto) (0-0.2) K/uL Immature Gran # (Auto) (0.00-0.02) K/uL ESR (0-21) mm/hr Sodium (136-145) mmol/L Potassium (3.5-5.1) mmol/L Chloride (98-107) mmol/L Carbon Dioxide (21-32) mmol/L Anion Gap (3-11) BUN (7-18) mg/dl Creatinine (0.6-1.2) mg/dl Est Cr Clr Drug Dosing ml/min Est GFR ( Amer) Est GFR (Non-Af Amer) BUN/Creatinine Ratio (10-20) Glucose (70-99) mg/dl Calcium (8.5-10.1) mg/dl Total Creatine Kinase 76 (26-192) U/L C-Reactive Protein (0-0.29) mg/dl Urine Color Urine Appearance (Clear) Urine pH (4.5-7.5) Ur Specific [place] (1.000-1.030) Urine Protein (Negative) Urine Glucose (UA) (Negative) Urine Ketones (Negative) Urine Blood (Negative) Urine Nitrite (Negative) Urine Bilirubin (Negative) Urine Urobilinogen (Negative) Ur Leukocyte Esterase (Negative) Urine Test (Negative) Wound cx with MSSA, pansensitive PG Care Time/CCT Total # of Minutes Spent Total Time Spent with Patient: Total time spent is greater than 50% in coordination of care (as documented) at patient's floor/unit and/or counseling patient: Coding Level of Care Code 48336 Subseq Hosp Care Lvl 2 Diagnoses Cellulitis and abscess of left lower extremity L03.116; L02.416 Functional dyspepsia K30 Smoker F17.200 DVT prophylaxis Z29.9
[2020-10-31] MEDS ORDERED: LORazepam 0.5 MG TAB PO STA (01:27)
[2020-10-31] MEDS: ceFAZolin 2000MG 2,000 MG/15 ML SYR IV SCH (04:13)
[2020-10-31] MEDS ORDERED: VANCOMYCIN TROUGH ONE (07:30)
[2020-10-31 07:33] LABS: Basophils # (auto) 0.01 K/uL (0-0.2); Basophils % (auto) 0.1 %; Eosinophils # (auto) 0.11 K/uL (0-0.5); Eosinophils % (auto) 1.5 %; Hematocrit (blood only) 40.1 % (37-47); Hemoglobin 13.4 g/dL (12.0-16.0); Immature Granulocytes # (auto) 0.01 K/uL (0.00-0.02); Immature Granulocytes % (auto) 0.1 %; Lymphocytes # (auto) 2.26 K/uL (1.2-3.4); Lymphocytes % (auto) 31.3 %; Mean Corpuscular Hemoglobin 29.6 pg (25-34); Mean Corpuscular Hgb Conc 33.4 g/dL (32-36); Mean Corpuscular Volume 88.5 fL (80-100); Mean Platelet Volume 10.2 fL (7.4-10.4); Monocytes % (auto) 9.7 %; Neutrophils # (auto) 4.12 K/uL (1.4-6.5); Neutrophils % (auto) 57.3 %; Platelet Count 180 K/uL (130-400); RDW Coefficient of Variation 13.1 % (11.5-14.5); RDW Standard Deviation 42.8 fL (36.4-46.3); Red Blood Count 4.53 M/uL (4.2-5.4); White Blood Count 7.21 K/uL (4.8-10.8)
[2020-10-31 08:11] LABS: BUN Creatinine Ratio 8.8 (10-20); Calcium 8.7 mg/dl (8.5-10.1); Creatinine Clr Calc Pharmacy 105.5 ml/min; Potassium 3.7 mmol/L (3.5-5.1)
[2020-10-31] MEDS: NICOTINE 21 MG/24 HR TDSY TD SCH (08:11)
[2020-10-31 08:12] LABS: C Reactive Protein 3.09 mg/dl (0-0.29)
[2020-10-31] MEDS: [UNRECOGNIZED DRUG - OTHER] PO SCH (08:12)
[2020-10-31] MEDS: PROBIOTICS PO SCH (08:12)
--- NOTE | 2020-10-31 09:38 | Discharge Summary ---
Date of Service October 31, 2020 Admission HPI Per Admitting Provider 20 YOF with past medical history of lyme disease, erythematous rash, blood in stool with negative colonoscopy, Nexplanon implant. Patient comes into the emergency room for re-evaluation of left lower leg cellulitis, that has worsened over the past 24 hours. Patient came to the emergency room yesterday for painful, red, tender area which she originally noticed around Sat after when was outside in her garden. As she presented in the EMD yesterday a bedside I&D was performed with drainage of small amount of purulence fluid and a wound culture was obtained. She was discharged on Bactrim and Keflex. Today she came back in the ER as the area she was more erythemic, more painful, and red line tracking up her leg. She denies any fevers or chills, tender or swollen lymphnodes. The dressing from this morning had "yellow but not purulence drainage" She is not on any other medications other than Nexplanon, current smoker and marijuana user, and NOT immunocompromised. Patient will be observed for response to IV antibiotics. Wound Culture from 10/28/20 is staphylococcus species- await for sensitivities- placed on IV vancomycin Principal Diagnosis Left lower extremity abscess and cellulitis with lymphangitis Discharge Exam Constitutional WD/WN, vitals as above Eyes + anicteric sclerae Neck trachea midline, no thyromegaly Respiratory normal respiratory effort, lungs clear to auscultation Cardiovascular Rate/Rhythm: regular rate and regular rhythm Heart Sounds: no murmur Extremities: + edema (Very minimal residual left lateral ankle edema nonpitting) Chest (Breasts) Chest: normal inspection of chest Gastrointestinal (Abdomen) normal bowel sounds, soft, nontender, no hepatosplenomegaly Musculoskeletal Extremities: no cyanosis and no clubbing Skin Very minimal erythema residual in the left lateral ankle, otherwise no further lymphangitis at the left medial thigh, no erythema of the left leg. Very scant ecchymosis around the incision wound which is closed over with a small scab and 1 cm in length, no tenderness to palpation, 2+ dorsalis pedis pulse on the left Neurologic moves all extremities and awake; no focal motor deficits Psychiatric Orientation: alert and oriented x 3 Eye Contact: good eye contact Speech: normal rate/rhythm/volume of speech Affect: + anxious affect and mood congruent with affect Thought Process: goal directed thought process and linear/logical thought process Suicidal Thoughts: + reports suicidal thoughts and + reports suicidal plan Insight: excellent insight Discharge Data Allergies Allergy/AdvReac Type Severity Reaction Status Date / Time No Known Allergies Allergy Verified 10/29/20 10:23 Consultations 10/29/20 13:27 ED Decision to Admit Stat Ordered Studies 10/29/20 11:27 CT tib/fib LT w con Stat Lower Extremity CT 10/29/20 11:27 CT tib/fib LT w con HISTORY: L leg wound TECHNIQUE: Multiaxial CT images of the left lower leg were performed following the intravenous administration of 90 cc of Optiray 320. COMPARISON STUDY: None. FINDINGS: No fracture or dislocation within the left tibia or fibula. No areas of bony destruction to suggest osteomyelitis. No radiopaque foreign bodies. There is skin thickening and subcutaneous edema predominantly along the lateral aspect of the left lower leg. No loculated fluid collections to suggest an abscess. There is also subcutaneous fat stranding with mild enhancement within the mid to distal left lower leg most pronounced laterally. Small linear area of hypodensity within the mid aspect of the left peroneus longus muscle which could represent a mild myositis. This is best seen on image 214. Remaining deep fascial compartments of the left lower leg are intact. IMPRESSION: 1. Extensive subcutaneous edema, fat stranding, and skin thickening predominantly along the lateral aspect of the left lower leg. This likely represents a cellulitis. 2. No loculated fluid collections to suggest an abscess. 3. Small linear area of hypodensity within the mid aspect of the left peroneus longus muscle. This may represent mild myositis. Remaining deep fascial compartments of the left lower leg are intact. 4. No underlying bony abnormality to suggest an osteomyelitis. ACT 112: Negative or not required by law. Electronically signed by: Julian Clifford M.D. 10/29/2020 1:08 PM Hospital Course (1) Cellulitis and abscess of left lower extremity: With left leg cellulitis and lymphangitis with small abscess now s/p I&D, failed outpt antibiotics however she presented back to the ER within 24 hours of incision and drainage Afebrile here, leukocytosis now resolved, no sepsis Blood cultures-remain no growth to date over [address] leg no loculated fluid collections to suggest an abscess CK normal-was checked due to mention of myositis on CT Wound cx with MSSA, pansensitive Leg is significantly improved with 2 days of IV antibiotics-initially vancomycin and then narrowed down to cefazolin after culture returned; no further lymphangitis and only very minimal residual erythema and edema left lateral ankle Markers of inflammation trending downward -Discharged home on cephalexin 500 mg p.o. 4 times daily x7 more days Elevate leg when sitting or lying down Follow-up with PCP (2) Smoker: pack a day of cigarettes, also with marijuana as below - nicotine patch utilized here needs continued smoking cessation counseling (3) Marijuana abuse: Smokes marijuana daily but does not want to anymore Has significant issues with anxiety as below and is self treating with marijuana. Counseled on cessation She will follow up with psychiatry (4) Anxiety: With significant lifelong issues with anxiety as well some depressive disorder. Has strong family history through multiple generations of bipolar disorder in possible paternal great-grandfather, paternal grandfather, father who is an alcoholic, as well as mother and sister with psychiatric issues. Has significant amount of emotional turmoil in her life due to family related mental health issues. Has been using marijuana for self-medication but does not want to as she knows this is not solving the problem. Gave her information to follow-up with psychiatry at [facility] She contracts verbally for safety and is not a harm to herself or others at this time. Crisis phone number given for suicide and discussed. (5) Functional dyspepsia: No acute needs Has followed up with GI in the past Discussed treating anxiety as above as well as not eating late at night. (6) DVT prophylaxis: Lovenox and SCD to the right lower extremity Dispo-stable for discharge to home Total Time Total Time Spent Total Time Spent (In Minutes): 45 minutes Total Time Includes: Examination of the Patient, Discharge Planning and Medication Reconciliation Discharge Plan Discharge Items Patient Disposition: Home - Self-Care Reason For Visit: CELLULITIS Discharge Diagnosis: Left lower extremity abscess and cellulitis Condition on Discharge: Good Activity: As commented below Lifting: None Bathing: No limitations Exercise/Sports: As tolerated Exercise Comment: Try to elevate left leg as much as possible when sitting or lying down Driving/Machine Use: No limitations Non-emergency contact: Primary Care Provider and Psychiatrist Call non-emergency contact if: you have any medication questions, your symptoms worsen, your pain is not controlled, your pain is worsening, your pain is unusual for you, your pain is concerning for you, you have a fever, your temperature is above 101, your wound has increased redness, your wound has increased drainage and your wound pain has increased Follow-up/Referrals: [facility] [Outside] (Please schedule an appointment with [facility] for Psychiatry evaluation.) Jenise English, DO [Primary Care Provider] - 11/15/20 2:00 pm (Patient has chosen to switch PCP to Jenise English.) Diet: Regular Addtl Attending Provider Instructions: Please finish out the course of cephalexin 500 mg by mouth 4 times a day for 7 more days. Your infection was caused by bacteria called Staphylococcus aureus. Follow-up with your primary care physician within 1 to 2 weeks after discharge. As we discussed, please make an appointment with the psychiatrist to discuss your anxiety and depression. If you ever feel thoughts of self-harm or of harming others, please go to the hospital or call for help right away. You can call the crisis hotline at [facility] [phone]. It was a pleasure taking care of you, -Dr. Laurie Muñoz Pending Studies at Discharge: Yes Stand-Alone Forms: My [facility] drumbi, Smoking Cessation Medications and DC Order Prescriptions: New acetaminophen 325 mg Tablet 650 mg PO Q4H PRN (Reason: pain) Qty: 20 RF: 0 Continued Nexplanon 68 mg implant 68 mg SUBD CONT RF: 0 Probiotic 3 billion cell Capsule 3,000 mmu cells PO ONCE RF: 0 cephalexin 500 mg capsule 500 mg PO Q6H 7 Days Qty: 28 RF: 0 Discontinued sulfamethoxazole-trimethoprim [Bactrim DS] 800-160 mg tablet 1 tab PO Q12H 10 Days Qty: 20 RF: 0 Discharge Orders: Discharge Order (Routine); Ordered 10/31/20 Ordered By: Laurie Muñoz Admission Data Admit Date/Time: 10/29/20 16:18 Attending Provider: Laurie Muñoz Admit Provider: Da Renteria Primary Care Provider: Jenise English Other Providers: Da Renteria Coding Level of Care Code D/C Day Management >30 mins Diagnoses Cellulitis and abscess of left lower extremity L03.116; L02.416 Smoker F17.200 Marijuana abuse F12.10 Anxiety F41.9 Functional dyspepsia K30 DVT prophylaxis Z29.9
== END 2020-10-31 10:42 | disposition home or self-care (01) | DRG 603 ==
LOC: 3W 16:18 → SUATTDRO 16:18 → 3W 17:30